=== PATIENT | female | born 1965 | race Caucasian/White ===

== ENCOUNTER → 2016-07-27 | Outpatient (CLI) | payer BC ==
--- NOTE | 2016-07-29 15:57 | RADIOLOGY REPORT PS360 ---
DIG MAMM-DX EMELY W/AVWS W/CAD, US BREAST-RT COMPLETE W/AXILLA, US BREAST-LT COMPLETE W/AXILLA ORDERING PHYSICIAN : DEMETRA ACE APRN PATIENT AGE: 51 years GENDER: Female INDICATION: BREAST MASS Tender breast breast worse on left. TECHNIQUE: MLO cc view both breast along with additional CC and MLO views of left and right breast. COMPARISON: None available. Previous study [place], 20 years ago not available. Dx Mammogram LEFT BREAST with spot views . On focal nodular density is seen at the upper outer quadrant of the left breast just 1 cm beneath the skin surface.. This density measures nearly 14 mm on mammography and persist on spot views. Warrants biopsy. Appears to contain a few tiny calcifications that are faintly, barely appreciable... Ultrasound will be performed to further evaluate . Remainder the left breast appears satisfactory. ULTRASOUND LEFT BREAST including axillary survey: A solid nodule just beneath the skin is identified at 2:00. Measures just over 1.4 cm in length X1 .1 cm X 4.5 mm AP. This similar nodule warrants biopsy. Its width is greater than height and is certainly may be a benign features such as a benign fibroadenoma given its ultrasound appearance but there are some calcifications in overall it clearly requires biopsy. Cannot exclude skin dermal origin Since it is Is quite superficial thus we will unlikely performed mammotome biopsy & more likely perform ultrasound-guided FNA along with ultrasound-guided core biopsy. Alternatively since this is very superficial & if palpable consider surgical referral for local surgical excision of this shallow for visual nodule. There are scattered other small benign-appearing debris filled cystic areas at left breast. These are not of concern can be followed 1:00 small 5.3 mm debris-filled cyst. 5:00 mid-breast tiny 3.7 mm cyst. 7:00 mid zone breast small 6.8 mm cyst. Survey of axilla reveals benign nodes. ----- DX Mammogram RIGHT BREAST spot views: Mild asymmetry towards upper-outer quadrant of these areas is slightly stellate with seem to compress out on other views Also note a small round ovoid density towards 9:00.... ~ 5 mm size on mammography. Ultrasound to be performed to further evaluate these features. ULTRASOUND RIGHT BREAST-. Including axillary survey. No suspicious findings. 9 o'clock position: There is a small cyst 5.4 x 3.6 mm. Not of concern. Cyst appearing focus at o'clock right breast outer breast. Impression: Survey of axilla unremarkable. ------- IMPRESSION / SUMMARY 1. LEFT BREAST....: 1.4 cm solid nodule immediately beneath the skin 2:00 left breast. Warrants ultrasound-guided biopsy. (Likely will perform FNA & possibly core biopsy rather than mammotome given its very superficial location.....) Left breast BI-RADS 4.: SUSPICIOUS *RECOMMEND ultrasound-guided percutaneous B IOPSY* ----- 2.RIGHT BREAST: Areas of density upper-outer quadrant right breast most likely summation shadows with no discrete persistent focus of density. However recommend follow-up right mammogram 4-6 months in this patient further evaluate Small 5 mm cyst accounts for small nodular density. Confirm on today's ultrasound Right breast BI-RADS 3 probable benign: RECOMMEND follow-up right mammogram 4-6 MONTHS to further evaluate upper-outer quadrant right breast -----Please fax report to Demetra Ace's office------
== END ==
LOC: RAD 13:35
DX: N63 Unspecified lump in breast (principal); R92.8 Other abnormal and inconclusive findings on diagnostic imaging of breast
CPT/HCPCS: G0204